=== PATIENT | male | born 1960 | race Caucasian/White ===

== ENCOUNTER 2017-01-08 18:46 | Emergency (ER) | payer MEDICARE, OTHER ==
[~2017-01-08] VITALS: Ht 177.8 cm; Wt 80.0 kg
[~2017-01-08 18:46] MED LIST: BACT800T5 PO; CEPH500C3 PO; CHOLMIS5 XX; DILA100C PO; EYEDRO; GLUCTAB PO; LISI2.5T3 PO; TYLE3 PO
[2017-01-08 19:00] VITALS: BP 143/82; PULSE 104; RESP 18; TEMP 98.3; O2SAT 93
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
[2017-01-08] MEDS ORDERED: TETANUS/DIPHTHERIA TOXOID ADULT 0.5 ML VIAL IM ONE (19:45)
[2017-01-08] MEDS ORDERED: ACETAMINOPHEN/HYDROcodone 325 MG/5 MG TAB PO ONE (19:45)
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
[2017-01-08] MEDS ORDERED: LIDOCAINE HCL 1% 50 ML VIAL INFIL ONE (20:45)
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
== END 2017-01-08 22:30 | disposition home or self-care (01) ==
LOC: NEDAMB 18:46 → NEPD 22:30
DX: S01.511A Laceration without foreign body of lip, initial encounter (principal); M79.645 Pain in left finger(s); S00.81XA Abrasion of other part of head, initial encounter; J44.9 Chronic obstructive pulmonary disease, unspecified; I10 Essential (primary) hypertension; E11.9 Type 2 diabetes mellitus without complications; G47.30 Sleep apnea, unspecified; J34.2 Deviated nasal septum; J34.1 Cyst and mucocele of nose and nasal sinus; Y04.2XXA Assault by strike against or bumped into by another person, initial encounter; Y93.9 Activity, unspecified; Y92.89 Other specified places as the place of occurrence of the external cause; F17.210 Nicotine dependence, cigarettes, uncomplicated
CPT/HCPCS: 12011; 29130; 70450; 70486; 72125; 73140; 90471; 90714